=== PATIENT | female | born 1985 | race Caucasian/White ===

== ENCOUNTER 2023-11-28 18:55 | Inpatient (IN) | payer OTHER ==
[2023-11-28] MEDS: ELECTROLYTE-148 SOLN 500 ML IV ONE (20:00)
[2023-11-28] MEDS: CITRIC ACID/SODIUM CITRATE 30 ML UNIT-DOSE CUP PO ONE (20:10)
[2023-11-28] MEDS ORDERED: FENTANYL CITRATE/PF 50 MCG/ML VIAL ONE (20:25)
[2023-11-28] MEDS ORDERED: PHENYLEPHRINE HCL 10 MG/1 ML SINGLE DOSE VIAL ONE (20:25)
[2023-11-28] MEDS ORDERED: OXYTOCIN 10 UNITS/ML VIAL ONE (20:25)
[2023-11-28] MEDS ORDERED: ONDANSETRON 4 MG/2 ML VIAL ONE (20:25)
[2023-11-28] MEDS ORDERED: morphine SULFATE/PF 1 MG/2 ML (2cc Syringe - QUVA) ONE (20:25)
[2023-11-28] MEDS ORDERED: KETOROLAC TROMETHAMINE 30 MG/1 ML VIAL ONE (20:25)
[2023-11-28] MEDS ORDERED: ceFAZolin SODIUM 1 GM VIAL ONE (20:26)
[2023-11-28] MEDS: OXYTOCIN 20 UNITS in 0.9% NS 20 UNIT/1,000 ML INFUS.BAG IV SCH (21:45)
[2023-11-28] MEDS ORDERED: METHYLERGONOVINE MALEATE 0.2 MG/1 ML AMP IM PRN (21:53)
[2023-11-28] MEDS ORDERED: IBUPROFEN 600 MG TABLET (FP) PO PRN (21:53)
[2023-11-28] MEDS ORDERED: ACETAMINOPHEN 325 MG TABLET (FP) PO PRN (21:53)
[2023-11-28 22:06] LABS: CORD BASE EXCESS -4.7 mmol/L (0-2); CORD HCO3 22.9 mmHg (20-29); CORD PCO2 50.7 mmHg (30-78); CORD pH 7.272 (7.14-7.44)
[2023-11-28 22:09] LABS: CORD BASE EXCESS -5.4 mmol/L (0-2); CORD HCO3 22.3 mmHg (20-29); CORD PCO2 51.1 mmHg (30-78); CORD pH 7.258 (7.14-7.44)
[2023-11-28] MEDS ORDERED: OXYTOCIN 20 UNITS in 0.9% NS 20 UNIT/1,000 ML INFUS.BAG IV ONE (22:14)
[2023-11-28 23:27] VITALS: BMI 28.1
[2023-11-29] MEDS: SIMETHICONE 80 MG TAB.CHEW (FP) PO PRN (03:24)
[2023-11-29] MEDS: CEFAZOLIN 1 GM in DEXTROSE 5%-WATER - 50 ML IVPB SCH (03:24)
[2023-11-29 07:30] LABS: BASO % 0.3 % (0-2.0); EOS % 0.1 % (0-4.5); HEMATOCRIT 33.8 % (32.4-45.2); HEMOGLOBIN 11.5 GM/dL (10.7-15.3); LYMPH % 13.8 % (8-40); MCH 30.2 pg (25.7-33.7); MCHC 33.9 g/dl (32.0-36.0); MEAN CELL VOLUME 89.1 fl (80-96); MEAN PLT VOLUME 11.2 fl (7.5-11.1); MONO % 5.2 % (3.8-10.2); NEUT % 80.6 % (42.8-82.8); PLATELET COUNT 153 10^3/uL (134-434); RDW 14.4 % (11.6-15.6); WHITE BLOOD COUNT 15.6 K/mm3 (4.0-10.0)
[2023-11-29] MEDS ORDERED: oxyCODONE HCL 5 MG TABLET PO PRN (09:54)
[2023-11-29] MEDS: ACETAMINOPHEN 1000 MG/100 ML BAG IVPB SCH (10:28)
[2023-11-29 12:51] LABS: BASO % 0.3 % (0-2.0); EOS % 0.1 % (0-4.5); HEMATOCRIT 34.9 % (32.4-45.2); HEMOGLOBIN 11.4 GM/dL (10.7-15.3); LYMPH % 11.2 % (8-40); MCH 29.3 pg (25.7-33.7); MCHC 32.7 g/dl (32.0-36.0); MEAN CELL VOLUME 89.5 fl (80-96); MEAN PLT VOLUME 10.8 fl (7.5-11.1); MONO % 5.3 % (3.8-10.2); NEUT % 83.1 % (42.8-82.8); PLATELET COUNT 156 10^3/uL (134-434); RDW 13.8 % (11.6-15.6); WHITE BLOOD COUNT 14.7 K/mm3 (4.0-10.0)
[2023-11-29 13:18] LABS: POTASSIUM 3.7 mmol/L (3.5-5.1)
[2023-11-29 13:19] LABS: CALCIUM 7.8 mg/dL (8.5-10.1)
[2023-11-29 13:20] LABS: ALBUMIN 1.9 g/dl (3.4-5.0); BLOOD UREA NITROGEN 9.8 mg/dL (7-18)
[2023-11-29 13:22] LABS: BILIRUBIN,DIRECT 0.7 mg/dL (0.0-0.2)
[2023-11-29 13:23] LABS: CREATININE 0.6 mg/dL (0.55-1.3)
[2023-11-29 13:24] LABS: BILIRUBIN,TOTAL 0.9 mg/dL (0.2-1)
[2023-11-29] MEDS: IBUPROFEN 600 MG TABLET (FP) PO PRN (15:17)
[2023-11-29] MEDS ORDERED: BISACODYL 10 MG SUPP.RECT RC PRN (21:54)
[2023-11-30 09:00] LABS: POTASSIUM 3.9 mmol/L (3.5-5.1)
[2023-11-30 09:02] LABS: CALCIUM 8.4 mg/dL (8.5-10.1)
[2023-11-30 09:03] LABS: ALBUMIN 1.9 g/dl (3.4-5.0)
[2023-11-30 09:05] LABS: BILIRUBIN,DIRECT 0.4 mg/dL (0.0-0.2)
[2023-11-30 09:06] LABS: CREATININE 0.5 mg/dL (0.55-1.3)
[2023-11-30 09:07] LABS: TOT PROT 5.2 g/dl (6.4-8.2)
[2023-11-30 09:08] LABS: BILIRUBIN,TOTAL 0.6 mg/dL (0.2-1)
[2023-11-30] MEDS: ACETAMINOPHEN 500 MG TABLET (FP) PO PRN (10:49)
[2023-11-30] MEDS: NIFEdipine 10 MG CAPSULE (FP) PO ONE (17:37)
[2023-12-01 06:05] VITALS: RESP 18
[2023-12-01 07:44] LABS: BASO % 0.5 % (0-2.0); EOS % 0.5 % (0-4.5); HEMATOCRIT 34.7 % (32.4-45.2); HEMOGLOBIN 11.8 GM/dL (10.7-15.3); LYMPH % 14.1 % (8-40); MCH 30.3 pg (25.7-33.7); MCHC 33.9 g/dl (32.0-36.0); MEAN CELL VOLUME 89.2 fl (80-96); MEAN PLT VOLUME 10.3 fl (7.5-11.1); MONO % 4.8 % (3.8-10.2); NEUT % 80.1 % (42.8-82.8); PLATELET COUNT 198 10^3/uL (134-434); RBC 3.89 M/mm3 (3.60-5.2); RDW 14.7 % (11.6-15.6); WHITE BLOOD COUNT 14.6 K/mm3 (4.0-10.0)
[2023-12-01 09:52] VITALS: BP 147/92; PULSE 96; TEMP 98.9
== END 2023-12-01 13:20 | disposition home or self-care (01) | DRG 540 ==
LOC: JLDR 18:55 → J3W 11-29 00:20
PROVIDERS: ADMIT Specialist; ATTEND Specialist
PROC: 10D00Z1 Extraction of Products of Conception, Low, Open Approach (ICD-10-PCS; principal; 2023-11-28)
DX: O32.1XX0 Maternal care for breech presentation, not applicable or unspecified (principal); O41.03X0 Oligohydramnios, third trimester, not applicable or unspecified; Z3A.36 36 weeks gestation of pregnancy; Z37.0 Single live birth
CPT/HCPCS: 36415; 36600; 59025; 80048; 80076; 82043; 82570; 82803; 83615; 84156; 85025; 85610; 85730; 86780; 86850; 86900; 86901; 88307-TC; 94010; J0131